=== PATIENT | male | born 1965 | race Caucasian/White ===

== ENCOUNTER 2020-06-25 15:30 | Emergency (ER) | payer OTHER ==
[2020-06-25 15:49] VITALS: BP 146/98; PULSE 86; TEMP 98.8; BMI 23.7
== END 2020-06-25 16:12 | disposition home or self-care (01) ==
LOC: FER 15:30
DX: R19.7 Diarrhea, unspecified (principal)
CPT/HCPCS: 99282-25

== ENCOUNTER 2021-09-24 15:16 | Emergency (ER) | payer OTHER ==
[2021-09-24 15:26] VITALS: BP 140/79; PULSE 99; TEMP 99.4; BMI 24.0
[2021-09-24 16:20] LABS: INR 1.03 (0.83-1.09); PROTHROMBIN TIME (PATIENT) 11.8 SEC (9.7-13.0)
[2021-09-24 16:38] LABS: BILIRUBIN,TOTAL 0.4 mg/dl (0.2-1); CALCIUM 9.3 mg/dl (8.5-10); CREATININE 1.2 mg/dl (0.55-1.3); TOT PROT 7.3 g/dl (6.4-8.2)
[2021-09-24 16:45] LABS: HEMATOCRIT 21.1 % (35.4-49); MCH 24.8 pg (25.7-33.7); MCHC 33.4 g/dl (32.0-35.9); MEAN CELL VOLUME 74.3 fl (80-96); MEAN PLT VOLUME 7.6 fl (7.5-11.1); PLATELET COUNT 469.4 10^3/uL (134-434); RBC 2.84 10^6/uL (4.00-5.60)
[2021-09-24 16:46] LABS: HEMOGLOBIN 7.1 G/dL (11.7-16.9)
[2021-09-24 16:59] LABS: ANISOCYTOSIS 2+
[2021-09-24 17:00] LABS: PLATELET ESTIMATE SLT INCREASE
== END 2021-09-24 17:13 | disposition home or self-care (01) ==
LOC: FER 15:16
DX: D64.9 Anemia, unspecified (principal)
CPT/HCPCS: 36415; 80053; 82272; 85025; 85610; 86850; 86900; 86901; 99283-25

== ENCOUNTER 2021-11-17 19:42 | Emergency (ER) | payer OTHER ==
[2021-11-17] MEDS ORDERED: predniSONE 20 MG TABLET (UD) PO ONE (20:11)
[2021-11-17] MEDS ORDERED: predniSONE 20 MG TABLET (UD) ONE (20:17)
[2021-11-17 20:51] VITALS: BP 151/98; PULSE 87; RESP 16; TEMP 98.6; BMI 24.0
== END 2021-11-17 20:20 | disposition home or self-care (01) ==
LOC: FER 19:42
DX: S60.562A Insect bite (nonvenomous) of left hand, initial encounter (principal); W57.XXXA Bitten or stung by nonvenomous insect and other nonvenomous arthropods, initial encounter
CPT/HCPCS: 99283-25